=== PATIENT | female | born 1975 | race Hispanic/Latino ===

== ENCOUNTER 2019-03-06 12:07 | Day surgery (SDC) | payer OTHER ==
[2019-03-06 12:51] VITALS: BMI 19.2
[2019-03-06] MEDS ORDERED: hydrALAZINE 20 MG/ML VIAL SLOW IVP PRN (13:15)
--- NOTE | 2019-03-06 13:17 | PDOC.LDHP ---
Labor and Delivery H&P Chief complaint: other ("palpitations") HPI: [address] Henry here for "palpitations", no LOC, no chest pain, no CTX. Denies issues. Review of Systems: complete ROS completed and as per HPI Current gestational age (weeks): 27 (5 days) Dating criteria: last menstrual period Grav: 3 Para: 2 OB History Details: HX Current complications: none Abnormal US findings: No Current medications: pre- vitamins Previous surgical history: appendectomy, other (nasal surgery) Allergies/Adverse Reactions: Allergies Allergy/AdvReac Type Severity Reaction Status Date / Time ciprofloxacin Allergy Verified 03/06/19 12:53 Social history: none - Physical Exam Vital signs reviewed and normal: yes (BPs 90/50s) General: NAD Heart: RRR Abdomen: gravid Extremeties: no edema FHT: category 1 [place] contractions every: none - Assessment Palpitations at 27,5 weeks, AMA. - Plan Plan: observation in L&D (No evidence acute cardic events. Palpitations by HX, but clinically we;;. Will check EKG. I suspect benign changes. No evidence PTB.)
--- NOTE | 2019-03-06 13:21 | PDOC.EVN ---
Event Note - Event Note Event Note: At bedside now. Patient in NAD EKG reviewed. May be slight anxiety related.
[2019-03-07] MEDS ORDERED: FLU VACC QS2019-20(6MOS UP)/PF 60 MCG/0.5 ML SYRINGE IM ONE (09:00)
--- NOTE | 2019-03-09 23:00 | EKG ---
Test Reason : Blood Pressure : / mmHG Vent. Rate : 059 BPM Atrial Rate : 059 BPM P-R Int : 140 ms QRS Dur : 084 ms QT Int : 386 ms P-R-T Axes : 031 066 032 degrees QTc Int : 382 ms Sinus bradycardia Otherwise normal ECG No previous ECGs available Confirmed by Anil COREY ([id number]) on 03/09/2019 10:59:54 PM Referred By: KOKO Confirmed By:Anil COREY
== END 2019-03-06 14:07 | disposition home or self-care (01) ==
LOC: L&D/OP 12:07
PROVIDERS: ATTEND Obstetrics & Gynecology
DX: O99.89 Other specified diseases and conditions complicating pregnancy, childbirth and the puerperium (principal); R00.2 Palpitations; R51 Headache; H53.8 Other visual disturbances; O09.522 Supervision of elderly multigravida, second trimester; Z3A.27 27 weeks gestation of pregnancy; Z88.1 Allergy status to other antibiotic agents
CPT/HCPCS: 93005; 93010

== ENCOUNTER 2019-05-21 16:09 | Day surgery (SDC) | payer MEDICAID, OTHER ==
[2019-05-21 16:58] VITALS: BMI 21.0
[2019-05-21] MEDS ORDERED: hydrALAZINE 20 MG/ML VIAL SLOW IVP PRN (17:30)
--- NOTE | 2019-05-21 18:46 | HP ---
PRIMARY OB: Dr. Jan Henry. CHIEF COMPLAINT: Decreased movement. HISTORY OF PRESENT ILLNESS: The patient is a 44-year-old G3, P2 female with an intrauterine at 38 weeks and 4 days, presenting to Labor and Delivery with a 4-hour history of decreased movement. The patient reports that she has used to feeling her baby move a lot more frequently than she has in the last 4 hours and was worried and came in for evaluation. The patient denies any recent illness, fever, fall, headache, chest pain, shortness of breath, nausea, vomiting, diarrhea, constipation, hip problems, knee problems, muscle weakness. Denies change in discharge, bleeding, or leakage of fluid. Denies urinary urgency or frequency. The patient does report that she was tested GBS positive for this . Since then, she has made some changes to her diet probiotics and is requesting to be tested again for group B strep. The patient has made the decision to decline antibiotics if the test comes back negative. I did review recommendations with her that should she test group B strep positive any time during this , that we would recommend antibiotic use during labor. The patient has expressed understanding and is again requesting that she be tested for group B strep. PAST MEDICAL HISTORY: Negative. PAST SURGICAL HISTORY: She has had an appendectomy and has had nasal surgery. ALLERGIES: CIPROFLOXACIN. MEDICATIONS: vitamins. SOCIAL HISTORY: Denies drug, alcohol, tobacco use. OB LABS: Unavailable at the time of dictation. REVIEW OF SYSTEMS: Per HPI. PHYSICAL EXAMINATION: VITAL SIGNS: Blood pressure 122/58, heart rate of 67, respiratory rate of 16, saturating 100% on room air, temperature 98.2. GENERAL: She appears to be in no acute distress. She is alert, oriented, cooperative, and pleasant to interact with. HEAD: Normocephalic and atraumatic. LUNGS: Clear to auscultation bilaterally. HEART: Regular rate and rhythm. ABDOMEN: Gravid, soft, nontender. EXTREMITIES: Nontender. Nonedematous. DIAGNOSTIC DATA: heart tracing shows a baseline in the 120s with moderate long-term variability, positive 15 x 15 accelerations, no decelerations. Tocometer showing some irritability, but no consistent contraction pattern. ASSESSMENT AND PLAN: The patient is a 44-year-old female with an intrauterine at 38 weeks and 4 days, here for decreased movement x4 hours. Fetus has reactive NST and category 1 tracing. Reassurance has been given to the patient. GBS has been collected today per the patient's request, and I have recommended that she have that conversation with Dr. Henry about the new group B strep test results and her desires to withhold antibiotics. The patient is being discharged to home. She did have term labor precautions. Job ID: [id number]
== END 2019-05-21 17:43 | disposition home health service (06) ==
LOC: L&D/OP 16:09
PROVIDERS: ATTEND Obstetrics & Gynecology
DX: O36.8130 Decreased fetal movements, third trimester, not applicable or unspecified (principal); O98.813 Other maternal infectious and parasitic diseases complicating pregnancy, third trimester; B95.1 Streptococcus, group B, as the cause of diseases classified elsewhere; Z3A.38 38 weeks gestation of pregnancy; Z88.1 Allergy status to other antibiotic agents
CPT/HCPCS: 59025; 87077; 87081; 99283

== ENCOUNTER 2019-05-29 04:01 | Inpatient (IN) | payer OTHER ==
[2019-05-29 04:50] VITALS: BMI 20.1
[2019-05-29] MEDS ORDERED: Ibuprofen 800 MG TAB PO PRN (05:07)
[2019-05-29] MEDS ORDERED: Ondansetron PF 4 MG/2 ML Vial IVP PRN ×3 (05:07→20:55)
[2019-05-29] MEDS ORDERED: hydrALAZINE 20 MG/ML VIAL SLOW IVP PRN ×2 (05:07→20:55)
[2019-05-29] MEDS ORDERED: Acetaminophen 500 MG TAB PO PRN (05:07)
[2019-05-29] MEDS ORDERED: NS / Oxytocin 40 units/1000ml 1,000 ML IV PRN (05:07)
[2019-05-29] MEDS ORDERED: Methylergonovine 0.2 MG/ML VIAL IM PRN ×2 (05:07→20:55)
[2019-05-29] MEDS ORDERED: Lidocaine 1% (PF) 30 ML VIAL SC PRN (05:07)
[2019-05-29] MEDS ORDERED: Docusate 100 MG CAP PO PRN (05:07)
[2019-05-29] MEDS ORDERED: Diphenoxylate HCl/Atropine Tablet PO PRN ×2 (05:07)
[2019-05-29] MEDS ORDERED: Carboprost 250 MCG/ML AMP IM PRN (05:07)
[2019-05-29] MEDS ORDERED: Meperidine HCl/PF 25 MG/ML VIAL IM/IV PRN (05:07)
[2019-05-29] MEDS ORDERED: Misoprostol 200 MCG TAB PR PRN (05:07)
[2019-05-29] MEDS ORDERED: Promethazine HCl 25 MG/ML VIAL IM PRN ×3 (05:07→20:55)
[2019-05-29] MEDS ORDERED: HYDROcodone/Acetaminophen 5/325 mg Tablet PO PRN ×4 (05:07→20:55)
[2019-05-29] MEDS ORDERED: Butorphanol Tartrate 1 MG/ML VIAL SLOW IVP PRN (05:07)
--- NOTE | 2019-05-29 05:12 | PDOC.LDHP ---
Labor and Delivery H&P Chief complaint: contractions HPI: 45 y/o at 39 and 5/7 weeks in labor. Patient declines blood products per yazidi reasons. Due date: 05/31/19 Grav: 3 Para: 2 Current complications: none Abnormal US findings: No Current medications: pre-karsten vitamins Allergies/Adverse Reactions: Allergies Allergy/AdvReac Type Severity Reaction Status Date / Time ciprofloxacin Allergy Intermediate Verified 05/29/19 04:51 Social history: none - Physical Exam Vital signs reviewed and normal: yes General: NAD, resting Heart: RRR Lungs: CTAB Abdomen: gravid Extremeties: no edema FHT: category 1 - Vaginal Exam cm dilated: 5 - Assessment L&D Assessment: term patient in labor - Plan Plan: admit to L&D
[2019-05-29] MEDS ORDERED: Penicillin G Potassium 5 MILL.UNITS in Sodium Chloride 0.9% 100 ML IVPB SCH (05:15)
[2019-05-29] MEDS: Lactated Ringer's 1,000 ML IV SCH ×2 (05:46→08:13)
[2019-05-29 06:08] LABS: Hemoglobin 14.2 g/dL (12.0-16.0); Mean Corpuscular HGB CONC 34.3 g/dL (32.0-36.0); Mean Corpuscular Hemoglobin 33.1 pg (27.0-31.0); Mean Corpuscular Volume 96.5 fL (78.0-98.0); Platelet Count 147 thou/uL (130-400); RBC Distribution Width 12.3 % (11.5-14.5); Red Blood Cell (RBC) Count 4.28 mill/uL (4.20-5.40); White Blood Cell (WBC) Count 8.3 thou/uL (4.8-10.8)
[2019-05-29 06:51] LABS: Syphilis Antibody Nonreactive (Nonreactive); Syphilis Antibody Index 0.08 S/CO (<1.00 Non-Reactive)
[2019-05-29] MEDS ORDERED: Fentanyl 4 mcg/Bup 0.1% Cadd 100 ML ONE ×2 (06:51→16:27)
[2019-05-29 06:52] LABS: HBSAg Index 0.26 S/CO (0-0.99); Hep B Surf Ag Non-Reactive S/CO (NonReactive)
[2019-05-29] MEDS ORDERED: Acetaminophen 325 MG TAB PO PRN (07:50)
[2019-05-29] MEDS ORDERED: ePHEDrine/0.9% NaCl/PF SYRINGE 50 mg/10 ml SLOW IVP PRN (07:50)
[2019-05-29] MEDS ORDERED: diphenhydrAMINE 50 MG/ML VIAL IVP PRN (07:50)
[2019-05-29] MEDS ORDERED: Naloxone HCl 0.4 mg/ml Vial IVP PRN ×2 (07:50)
[2019-05-29] MEDS ORDERED: Lactated Ringer's 500 ML IV PRN (07:50)
[2019-05-29] MEDS ORDERED: Fentanyl 4 mcg/Bupivacaine 0.1% Cassette 100 ML EPIDURAL SCH (08:00)
[2019-05-29] MEDS ORDERED: Communication Order-Pharmacy FS PRN (08:00)
[2019-05-29] MEDS: Penicillin G 2.5 MILL.units 2.5 MILL.UNITS in Premix Bag 1 BAG IVPB SCH ×3 (09:17→17:42)
[2019-05-29] MEDS ORDERED: Bupivacaine 0.25% HCL 30 ML VIAL ONE (09:23)
[2019-05-29] MEDS ORDERED: Misoprostol 200 MCG TAB ONE (09:24)
[2019-05-29] MEDS ORDERED: Methylergonovine 0.2 MG/ML VIAL ONE (09:24)
[2019-05-29] MEDS ORDERED: Benzocaine-Menthol 82.5 ML CAN TOP PRN (20:55)
[2019-05-29] MEDS ORDERED: Preparation H Ointment 28 GM TUBE PR PRN (20:55)
[2019-05-29] MEDS ORDERED: diphenhydrAMINE 25 MG CAP PO PRN (20:55)
[2019-05-29] MEDS ORDERED: Lanolin Ointment 7 GM TUBE TOP PRN (20:55)
[2019-05-29] MEDS ORDERED: NS / Oxytocin 40 units/1000ml 1,000 ML IV SCH (20:55)
[2019-05-29] MEDS ORDERED: Milk Of Magnesia 30 ML UDCUP PO PRN (20:55)
[2019-05-29] MEDS ORDERED: Zolpidem Tartrate 5 MG TAB PO PRN (20:55)
[2019-05-29] MEDS ORDERED: Bisacodyl 10 MG SUPP PR PRN (20:55)
[2019-05-29] MEDS ORDERED: Misoprostol 200 MCG TAB VAG PRN (20:55)
[2019-05-29] MEDS ORDERED: FLU VACC QS2019-20(6MOS UP)/PF 60 MCG/0.5 ML SYRINGE IM ONE (21:00)
[2019-05-29] MEDS: Ibuprofen 800 MG TAB PO SCH (23:30)
[2019-05-29] MEDS: Docusate Calcium (SURFAK) 240 MG CAP PO SCH (23:30)
[2019-05-30] MEDS: Ibuprofen 800 MG TAB PO SCH ×3 (05:42→22:05)
[2019-05-30 06:21] LABS: Hemoglobin 12.7 g/dL (12.0-16.0); Mean Corpuscular HGB CONC 31.8 g/dL (32.0-36.0); Mean Corpuscular Hemoglobin 31.3 pg (27.0-31.0); Mean Corpuscular Volume 98.4 fL (78.0-98.0); Mean Platelet Volume 9.8 fL (7.4-10.4); Platelet Count 127 thou/uL (130-400); RBC Distribution Width 12.3 % (11.5-14.5); Red Blood Cell (RBC) Count 4.05 mill/uL (4.20-5.40)
[2019-05-30] MEDS ORDERED: Measles/Mumps/Rubella 10 MCG/0.5 ML VIAL SC ONE (09:00)
[2019-05-30] MEDS ORDERED: Adacel (T-DAP) 0.5 ML SYRINGE IM ONE (09:00)
[2019-05-30] MEDS ORDERED: Varicella virus, LIVE 0.5 ML VIAL SC ONE (09:00)
[2019-05-30] MEDS: Docusate Calcium (SURFAK) 240 MG CAP PO SCH ×2 (09:39→22:05)
[2019-05-30] MEDS: Prenatal Vitamin 1 TAB PO SCH (09:39)
[2019-05-30] MEDS: Ferrous Sulfate 325 MG TAB PO SCH ×2 (09:40→17:18)
--- NOTE | 2019-05-30 13:50 | PDOC.PP ---
Post Progress Note Post Day #: 1 PO intake tolerated: yes Flatus: yes Ambulation: yes Vital Signs (12 hours) Temp Pulse Resp BP Pulse Ox 05/30/19 12:08 98.2 F 62 20 92/54 L 05/30/19 08:00 98.5 F 52 L 20 82/50 L 96 05/30/19 03:45 97.7 F 57 L 18 105/51 L 95 Weight Weight 110 lb - Physical Examination General: NAD Cardiovascular: no m/r/g, RRR Respiratory: clear to auscultation bilaterally, non-labored breathing Abdominal: + bowel sounds, lochia, no distention Extremities: negative homans (B) Neurological: no gross focal deficits Psychiatric: A&Ox3, normal affect (DC Home tomorrow) Result Diagrams: 05/30/19 06:05 Additional Labs: Post Labs Blood Type O POSITIVE 05/29/19 06:29 Hep Bs Antigen Non-Reactive S/CO (NonReactive) 05/29/19 05:52
--- NOTE | 2019-05-30 15:02 | DN ---
DATE OF PROCEDURE: 05/29/2019 TIME OF SERVICE: 1830 hours, Central Standard Time. PREOPERATIVE DIAGNOSIS: Intrauterine at 39 weeks and 5 days with spontaneous onset of labor. POSTOPERATIVE DIAGNOSIS: Intrauterine at 39 weeks and 5 days with spontaneous onset of labor. PROCEDURE: Spontaneous vaginal delivery over first-degree laceration of the perineum. FINDINGS: Viable female infant, weighing 2763 g with Apgars 9 and 9 and of 6 pounds 1 ounce. QUANTITATIVE BLOOD LOSS: 125 mL. COMPLICATIONS: None. PROCEDURE IN DETAIL: The patient presented to [facility] where she was admitted to the labor and delivery service. The patient underwent a normal and uneventful labor with normal cervical dilatation until she was found to be completely dilated. She was then allowed to push and was able to bring the baby down and delivered the baby in a vertex presentation without difficulties. Once the head delivered in occiput anterior position, the shoulders followed spontaneously along with the rest of the baby's body. Once out the baby's mouth and nose were bulb suctioned. The cord was clamped and cut and baby was handed to waiting attendants. Cord blood was collected. Gentle fundal massage was performed and the placenta delivered intact without problems. Hemostasis was assured. Quantitative blood loss was calculated. Inspection of the cervix, vaginal vault, and perineum did not reveal any lacerations needing suturing. Once again, hemostasis was within normal limits and the patient was allowed to recover in the labor and delivery room. Baby went to nursery. Job ID: [id number]
[2019-05-31] MEDS: Ibuprofen 800 MG TAB PO SCH (04:17)
[2019-05-31] MEDS: Ferrous Sulfate 325 MG TAB PO SCH (08:44)
[2019-05-31] MEDS: Prenatal Vitamin 1 TAB PO SCH (08:44)
[2019-05-31] MEDS: Docusate Calcium (SURFAK) 240 MG CAP PO SCH (08:44)
[2019-05-31 08:48] VITALS: BP 105/56; TEMP 97.6
== END 2019-05-31 13:25 | disposition home or self-care (01) | DRG 807 ==
LOC: L&D/OP 04:01 → L&D 05:30 → 3SW 21:40
PROVIDERS: ADMIT Obstetrics & Gynecology; ATTEND Obstetrics & Gynecology
PROC: 10E0XZZ Delivery of Products of Conception, External Approach (ICD-10-PCS; principal; 2019-05-29)
PROC: 0HQ9XZZ Repair Perineum Skin, External Approach (ICD-10-PCS; 2019-05-29)
DX: O70.0 First degree perineal laceration during delivery (principal); Z37.0 Single live birth; Z3A.39 39 weeks gestation of pregnancy
CPT/HCPCS: 36415; 36416; 51702; 85027; 86780; 86850; 86900; 86901; 87340; 99285; J2210; J2540; J3490; S0020